=== PATIENT | male | born 1935 | race Caucasian/White ===

== ENCOUNTER 2023-01-06 12:15 | Outpatient (CLI) | payer MEDICARE, OTHER ==
--- NOTE | 2023-01-06 16:57 | XRAY Report ---
PROCEDURE: Wrist 4 View LT INDICATIONS: WRIST PAIN LEFT TECHNIQUE: 4 views of the wrist were acquired. COMPARISON: None. FINDINGS: Bones: No fractures or dislocations. 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 No suspicious bony lesions. Soft tissues: No suspicious soft tissue calcifications or masses. 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 No fracture or dislocation. No brisa ss soft tissue abnormalities. Reviewed by: Yonathan Miller MD on 01/06/2023 4:56 PM PDT Approved by: Yonathan Miller MD on 01/06/2023 4:56 PM PDT Station ID: [id number]
== END 2023-01-06 12:30 | disposition home or self-care (01) ==
LOC: DI.N 12:15
PROVIDERS: ATTEND Family Medicine
DX: M19.032 Primary osteoarthritis, left wrist (principal)

== ENCOUNTER 2023-12-31 08:00 | Outpatient (CLI) | payer MEDICARE, OTHER | END 2023-12-31 23:59 | disposition home or self-care (01) | LOC: LAB 08:00 | PROVIDERS: ATTEND Physician Assistant | DX: R35.0 Frequency of micturition (principal) | CPT/HCPCS: 87086 ==